=== PATIENT | male | born 2000 | race Hispanic/Latino ===

== ENCOUNTER 2022-07-21 08:51 | Emergency (ER) | payer OTHER ==
[~2022-07-21] VITALS: Ht 165.1 cm; Wt 61.1 kg
[2022-07-21] MEDS ORDERED: HYDROCODON-ACE1 EA10 PO (10:49)
[2022-07-21] MEDS ORDERED: CEPHALEXIN500 MG PO (10:49)
== END 2022-07-21 11:18 | disposition home or self-care (01) ==
LOC: ED 08:51
DX: S62.641B Nondisplaced fracture of proximal phalanx of left index finger, initial encounter for open fracture (principal); W22.8XXA Striking against or struck by other objects, initial encounter
CPT/HCPCS: 11750; 73140; 90471; 90715; 99283-25; A9270